=== PATIENT | female | born 1945 | race Caucasian/White ===

== ENCOUNTER 2016-09-10 05:44 | Day surgery (SDC) | payer OTHER ==
[~2016-09-10] VITALS: Ht 160 cm; Wt 86.7 kg
--- NOTE | ~2016-09-10 | EKG ---
[address] [address] ELECTROCARDIOGRAM REPORT Name: ADILENE HANNAH Room #: 150-6 [facility].#: [id number] Admission: 09/10/16 Attend Phys: Regino Blackwell MD Discharge: Date of : 45 Report #: [id number] THIS REPORT FOR: //name// [facility] Test Date: 2016-09-10 Test Time: 08:59:26 Pat Name: ADILENE HANNAH Department: Room: 150 Gender: F Supervisor [employer]: marco : 1945 Requested By: Regino Blackwell Order Number: [id number] MD: Adin Zavala Measurements Intervals [place] Rate: 54 P: 33 PA: 153 QRS: -11 QRSD: 103 T: 42 QT: 500 QTc: 474 Interpretive Statements Sinus rhythm Inferior infarct, old No previous ECG available for comparison Electronically Signed On 09-10-2016 15:27:39 CDT by Adin Zavala [email or web address] <ELECTRONICALLY SIGNED> By: Adin Zavala MD 09/10/16 [id number] Adin Zavala MD /EPI
[~2016-09-10 05:44] MED LIST: ADVAIR 250-501 EACH IH; ALPHA LIPOIC A600 M1 PO; AMITRIPTYLINE H50 M2 OR; ASPIR 8181 MG PO; ASPIRIN EC325 M1 OR; B12INJ IM; BYSTOLIC 5 MG5 M1 OR; CALCIUM 1,0001 EACH OR; CALCIUM 500 +1 EAC5 PO; CRANBERRY300 MG PO; GABAPENTIN 100100 MG PO; GLUMETZA1000 PO; LEVEMIR SQ; LEVOTHROID50 MCG OR; LEVOTHYROXINE 0.1 MG PO; LIPITOR10 MG OR; LISINOPRIL-HCT1 EAC2 PO; LISINOPRIL20 MG PO; MAGNESIUM GLUC500 M1 OR; MAGNESIUM PO; POTASSIUM CHLO10 ME1 PO; TOPROL XL25 MG PO; ULTRAM 50MG TAB50 MG PO; VITAMIN D31000 UNI2 PO
[2016-09-10 09:00] VITALS: BP 149/72
[2016-09-10 09:24] LABS: HEMOGLOBIN 12.8 gm/dL (12.0-15.0); MCH 30.3 pg (26.0-34.0); MCHC 33.6 g/dL (28.0-37.0); MCV 90.2 fL (80.0-100.0); RBC 4.22 mil/uL (4.20-5.00); RDW 13.9 % (10.5-14.5); WBC 4.2 thou/uL (4.0-11.0)
[2016-09-10 09:30] LABS: POTASSIUM 3.6 mmol/L (3.5-5.1)
[2016-09-10 09:34] LABS: ALBUMIN 3.4 g/dL (3.4-5.0); TOTAL BILIRUBIN 0.5 mg/dL (<0.1-1.0); TOTAL PROTEIN 6.5 g/dL (6.4-8.2)
== END 2016-09-10 14:30 | disposition home or self-care (01) ==
LOC: OR 05:44 → TBA 05:44 → OR 09:32
PROVIDERS: Specialist
DX: C50.911 Malignant neoplasm of unspecified site of right female breast (principal)
CPT/HCPCS: 50010

== ENCOUNTER 2016-10-13 05:24 | Day surgery (SDC) | payer OTHER ==
[~2016-10-13] VITALS: Ht 160 cm; Wt 88.0 kg
--- NOTE | ~2016-10-13 | O ---
[facility] [place] [place] [address] OPERATIVE REPORT Name: ADILENE HANNAH Room #: 150-2 [facility]#: [id number] Admission: 10/13/16 Attend Phys: Regino Blackwell MD Discharge: Date of : 45 Report #: [id number] THIS REPORT FOR: //name// CC: Dr. Juan Blackwell DATE OF SERVICE: 10/13/2016 PREOPERATIVE DIAGNOSIS: Carcinoma, right breast. POSTOPERATIVE DIAGNOSIS: Carcinoma, right breast, final pathology pending. OPERATION: 1. Lymphatic mapping. 2. Right breast segmental resection with wire localization and specimen x-ray. 3. Oncoplastic closure with placement of BioSorb tissue marker. 4. Right axillary sentinel lymph node biopsy. SURGEON: Regino Blackwell MD CHUTE LOADER: Medical student MS Karina3. SECOND JOB COACH/JOB DEVELOPER: Medical student MS Danilo3. ANESTHESIA: General. HISTORY OF PRESENT ILLNESS: The patient was taken to nuclear medicine and the radiologist injected technetium sulfur colloid into the right breast as per protocol. Lymphatic study in the nuclear medicine department revealed a single hot spot in the right axilla, which was marked by the radiologist. The radiologist also performed wire localization for the biopsy site and clip in the central upper right breast. The patient was brought to the operating room for a general anesthetic. Lymphatic mapping was performed using the gamma probe and I confirmed the presence of a hot spot in the right axilla, which had 10-second count of 3609. Next, 5 mL of Lymphazurin blue dye were injected around the tumor site using sterile technique with alcohol prep. Next, the right breast and right axilla were widely prepped with ChloraPrep solution. Sterile drapes were applied. A curved incision was made just above the right areola and dissection was carried down through the skin and subcutaneous tissue and then up to the guidewire in the upper breast, which was delivered into the incision. A generous segmental resection was performed remove the breast tissue widely around the shaft and tip of the wire to include the tumor. The resection included the pectoralis fascia in order to get best possible margins. [facility] [address] [place] [address] OPERATIVE REPORT Name: ADILENE HANNAH Room #: 150-2 [facility]..#: [id number] Admission: 10/13/16 Attend Phys: Regino Blackwell MD Discharge: Date of : 45 Report #: [id number] specimen was marked with sutures for orientation purposes. Specimen x-ray confirmed removal of the tumor and the clip and the guidewire together with normal appearing breast tissue all around. The radiologist reviewed the films and agreed they were excellent. I agreed as well. The specimen was given directly to the pathologist. Palpation from within the breast revealed no other suspicious areas. Hemostasis was obtained using electrocautery. The breast tissue was mobilized from the underlying chest wall in order to allow for oncoplastic closure, advancing the tissue flaps to fill in the gap. It is estimated that greater than 35 square cm of tissue were mobilized. The BioSorb tissue marker spacer was used to determine that the 3 x 3 cm BioSorb tissue marker would be a good fit for this patient. The 3 x 3 BioSorb tissue marker was placed into the lumpectomy cavity where it was sutured in place using interrupted 3-0 Vicryl. The breast tissue was approximated using interrupted 3-0 Vicryl. The skin was approximated using running 4-0 subcuticular PDS. Next, a transverse right axillary incision was made and dissection was carried down into the axilla with care being taken to avoid injury to the neurovascular structures. We found a single sentinel node which was resected, controlling the blood and lymphatic supply using the Harmonic scalpel. The sentinel node had a 10-second count of 5637. It was submitted to pathology. Palpation within the axilla revealed no other suspicious lymph nodes. There were no other blue or radioactive nodes to be found. The post resection bed count was 26, which was well below 10% of the highest node. Hemostasis was excellent. The incision was closed using running 3-0 Vicryl for the deep layer and running 4-0 PDS for the subcuticular layer. Sterile dressings were applied and the patient was taken to recovery in satisfactory condition. Estimated blood loss was less than 10 mL. By: [id number] Regino Blackwell MD /gabo
--- NOTE | ~2016-10-13 | S ---
[facility] [place] [address] SURGICAL PATH RPT PROCEDURE Name: KARIME HONEYCUTT Room #: DEP [facility].#: [id number] Admission: 10/13/16 Date of : 45 Discharge: 10/13/16 Report #: [id number] Path Case #: [id number] PATHOLOGY REPORT COLLECTION DATE: 10/13/2016 RECEIVED DATE: 10/13/2016 SUBMITTING PHYS: Dr. Regino Blackwell OTHER PHYS: Dr Kelley Paul SPECIMEN(S) RECEIVED: A.Right breast segmental resection B.Right axillary sentinel lymph node #1 * * * * * * * * * * * * FINAL DIAGNOSIS: A. 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 - DUCTAL CARCINOMA IN SITU CRIBRIFORM TYPE, INTERMEDIATE NUCLEAR GRADE PRESENT ADJACENT TO THE BIOPSY CAVITY. - Margins of resection free of malignancy; closest superior and inferior margins are 10 mm away from the invasive carcinoma (please see synoptic report). B. Lymph node (one), right axillary sentinel lymph node # 1, biopsy: - Reactive lymph node negative for malignancy. - No isolated tumor cells or micrometastases present on AE1/AE3 immunohistochemical stain (0/1). SYNOPTIC CANCER STAGING REPORT Radiologic Finding: Mass or architectural distortion Procedure: Excision with wire-guided localization Lymph Node Sampling: [place] lymph node(s) Specimen Laterality: Right Tumor Site of Invasive Carcinoma: Central Presence of Invasive Carcinoma: Invasive ductal carcinoma (no special type or not otherwise specified) Histologic Grade: Tubule formation: Score 3: <10% of tumor area forming glandular/tubular structures Nuclear pleomorphism: Score 2: Cells larger than normal with open vesicular nuclei, visible nucleoli, and moderate variability in both size and shape [facility] [address] [place] [address] SURGICAL PATH RPT PROCEDURE Name: KARIME HONEYCUTT Gill Room #: [facility]#: [id number] Admission: 10/13/16 Date of : 45 Discharge: 10/13/16 Report #: [id number] Path Case #: [id number] Mitotic Rate: Score 1 (<=3 mitoses per mm2) [place] Histologic Score-Grade II: 6-7 points Ductal Carcinoma In Situ: DCIS is present Negative for extensive intraductal component (EIC) DCIS Architectural Patterns: Cribriform DCIS Nuclear Grade: Grade II (intermediate) DCIS Necrosis: Not identified Lobular Carcinoma In Situ (LCIS): Not identified Tumor Size: Size of Largest Invasive Carcinoma: Greatest dimension of largest focus of invasion > 1 mm Greatest dimension: 7 mm Skin: Skin is not present No skeletal muscle present Invasive Carcinoma Margins: Margins uninvolved by invasive carcinoma. Distance from closest margin: 10 mm Closest Uninvolved Margin-Superior Closest Uninvolved Margin-Inferior DCIS Margins: Margins uninvolved by DCIS. Distance from closest margin: 5 mm Closest Uninvolved Margin-Superior Lymph-Vascular Invasion: Not identified Dermal Lymph-Vascular Invasion: No skin present Microcalcifications: Not identified Treatment Effect: No known presurgical therapy Lymph Nodes: Total number of nodes examined (sentinel and nonsentinel): 1 Micro / Macro Metastases not identified Number of Lymph Nodes with Isolated Tumor Cells (<= 0.2 mm and <= 200 cells) - none Number of [place] Lymph Nodes examined: 1 Method of Evaluation of [place] Lymph Nodes: H-E, multiple levels Method of Evaluation of [place] Lymph Nodes: Immunohistochemistry Estrogen Receptor: Performed on another specimen, number: [id number] Results from other specimen: 90 percent Progesterone Receptor: Performed on another specimen, number: [id number] [place] [address] SURGICAL PATH RPT PROCEDURE Name: HONEYCUTTKARIME Room #: [facility]#: [id number] Admission: 10/13/16 Date of : 45 Discharge: 10/13/16 Report #: [id number] Path Case #: [id number] Results from other specimen: 0 percent HER2 Immunoperoxidase Results: Performed on another specimen, number: [id number] Results from other specimen: 1+ In Situ Hybridization (FISH or CISH) for HER2 Results: Not performed Other Ancillary Studies: Performed on another specimen Specimen (accession number): [id number] Name of test: Ki-67 Results: 6.4 percent TNM Descriptor(s): Primary Tumor (Invasive Carcinoma) (pT): pT1b: Tumor >5 mm but <= 10 mm in greatest dimension Category (pN): pN0 (i-): No regional lymph node metastases histologically, negative IHC Comment: The invasive carcinoma in the current specimen only measures 1 mm; however it measured 7 mm in contigous length in a single core per the biopsy report [id number] (please see separate report for details). That measurement is included in this synoptic report and the tumor is therefore staged as pT1b. COMMENT: Ae1/Ae3 performed on block B1- negative for metastatic carcinoma. PATHOLOGIST: Jannet Olivarez M.D. REPORT ELECTRONICALLY SIGNED BY: Jannet Olivarez M.D. DATE/TIME: 10/15/2016 17:25 * * * * * * * * * * * * GROSS PATHOLOGY: A. The first specimen is received fresh from the OR labeled "Karime Honeycutt - right breast segmental resection, long suture - lateral, short suture - superficial, call results [place] ext [id number]". Received on an AccuGrid map with needle localization wire in place is a 42.7 gram oriented lumpectomy specimen. It measures 4.6 cm from medial to lateral by 3.0 cm from superior to inferior by 6.8 cm from anterior/superior to posterior/deep. The margins are inked as follows: superior - blue, anterior - green; posterior/deep - orange, inferior - black, medial - yellow and lateral - red. The specimen is bisected to reveal a centrally located previous biopsy site. The specimen is fixed in formalin. Reported time out of body: 0948 on 10/13/16. Time placed in formalin: 1021 on 10/13/16. (CLW:amador; d/t: 10/13/2016) [address] [address] SURGICAL PATH RPT PROCEDURE Name: KARIME HONEYCUTT Room #: DEP [facility]#: [id number] Admission: 10/13/16 Date of : 45 Discharge: 10/13/16 Report #: [id number] Path Case #: [id number] After adequate fixation, sectioning through the specimen reveals a previous biopsy site measuring 2.0 x 0.8 x 0.6 cm, with a metallic clip present. This site is 3.5 cm from the lateral margin, 1.5 cm from the medial margin, 0.4 cm from the superior margin, 0.8 cm from the inferior margin, 1.3 cm from the anterior margin, and 3.3 cm from the posterior margin. The remainder the specimen is comprised of yellow-zepeda fibrofatty breast tissue, with no distinct nodules or lesions. The specimen is submitted representatively as follows: A1 most lateral margin A2 most medial margin A3-A6 entire previous biopsy site submitted from lateral to medial aspects. The total formalin fixation time is 35 hours and 30 minutes. B. The specimen is received in formalin labeled "Karime Honeycutt, right axillary sentinel lymph node #1, count 5637". Received is a segment of yellow-zepeda lobulated tissue measuring 4.1 x 3.2 x 1.5 cm in greatest dimensions. Sectioning reveals two readily identifiable lymph nodes measuring 1.0 and 1.1 cm in maximum dimensions. The lymph nodes are submitted entirely in cassette B1, differentially inked. Immunohistochemical stains are ordered. (CAA; 10/14/2016) INTRAOPERATIVE CONSULTATION (Zamzam Johnston M.D.) A. "Right breast segmental resection": - Oriented breast lumpectomy specimen with previous biopsy site identified and subsequently fixed in formalin. (CLW:amador; d/t: 10/13/2016) Professional services performed by [facility] at [facility] [address] [place] [address] CLINICAL HISTORY: Carcinoma right breast INITIAL CPT CODE(S): A; 05579, 87618 B; 31817, 04639 Professional services performed by [facility] at [facility] [address] [place] [address] Technical services performed by [facility] at [address] [place] [address], [place] [address]. Juan Carlton [facility] [address] [place] [address] SURGICAL PATH RPT PROCEDURE Name: KARIME HONEYCUTT Room #: [facility] Janeen#: [id number] Admission: 10/13/16 Date of : 45 Discharge: 10/13/16 Report #: [id number] Path Case #: [id number] [facility] [address] [address] PHONE: [phone] DIRECTOR: Quentin Hill M.D. * * * END OF REPORT * * *
[~2016-10-13 05:24] MED LIST changes: +CRANBERRY PO; +ECOTRIN325 MG PO; +IRON PO
[2016-10-13 06:44] LABS: HEMATOCRIT 39.4 % (37.0-47.0); HEMOGLOBIN 13.2 gm/dL (12.0-15.0); MCH 30.5 pg (26.0-34.0); MCHC 33.6 g/dL (28.0-37.0); MCV 90.7 fL (80.0-100.0); RBC 4.34 mil/uL (4.20-5.00)
[2016-10-13 06:51] LABS: CALCIUM 9.3 mg/dL (8.5-10.1); POTASSIUM 3.6 mmol/L (3.5-5.1)
[2016-10-13 06:55] LABS: ALBUMIN 3.7 g/dL (3.4-5.0); TOTAL BILIRUBIN 0.4 mg/dL (<0.1-1.0); TOTAL PROTEIN 7.4 g/dL (6.4-8.2)
[2016-10-13 07:30] VITALS: BP 168/72
== END 2016-10-13 12:00 | disposition home or self-care (01) ==
LOC: OR 05:24 → TBA 05:24 → OR 12:00
PROVIDERS: Specialist
DX: C50.911 Malignant neoplasm of unspecified site of right female breast (principal); I10 Essential (primary) hypertension; Z85.038 Personal history of other malignant neoplasm of large intestine; E03.8 Other specified hypothyroidism; E11.9 Type 2 diabetes mellitus without complications; Z90.49 Acquired absence of other specified parts of digestive tract
CPT/HCPCS: 50010; 50101; 50386; 50403; 52190; 53332; 56524; 56526; 56805; 62110; 62900; 70005

== ENCOUNTER → 2017-01-27 | Outpatient (CLI) | payer OTHER ==
[~2017-01-27] VITALS: Ht 157.5 cm; Wt 86.2 kg
[2017-01-27 08:34] VITALS: BP 167/62
[2017-01-27 08:41] LABS: HEMATOCRIT 37.5 % (37.0-47.0); HEMOGLOBIN 12.6 gm/dL (12.0-15.0); MCH 30.9 pg (26.0-34.0); MCHC 33.7 g/dL (28.0-37.0); MCV 91.7 fL (80.0-100.0); RBC 4.09 mil/uL (4.20-5.00); RDW 14.4 % (10.5-14.5); WBC 4.6 thou/uL (4.0-11.0)
[2017-01-27 08:52] LABS: CALCIUM 9.2 mg/dL (8.5-10.1); CREATININE 0.9 mg/dL (0.6-1.0); POTASSIUM 3.9 mmol/L (3.5-5.1)
[2017-01-27 08:54] LABS: APTT 24.5 Seconds (24.5-32.8)
== END | disposition home or self-care (01) ==
LOC: SPEC 08:07 → EDSTATUS 10:29 → SPEC 10:30
PROVIDERS: Radiology Vascular & Interventional Radiology
DX: Z45.2 Encounter for adjustment and management of vascular access device (principal); I10 Essential (primary) hypertension; E03.9 Hypothyroidism, unspecified; E11.9 Type 2 diabetes mellitus without complications; Z90.49 Acquired absence of other specified parts of digestive tract; Z98.890 Other specified postprocedural states; Z85.3 Personal history of malignant neoplasm of breast; D64.9 Anemia, unspecified; E78.5 Hyperlipidemia, unspecified

== ENCOUNTER 2017-12-09 20:29 | Emergency (ER) | payer OTHER ==
[~2017-12-09] VITALS: Ht 160 cm; Wt 93.9 kg
[2017-12-09] MEDS ORDERED: ULTRAM 50MG TAB50 MG PO (22:13)
== END 2017-12-09 22:29 | disposition home or self-care (01) ==
LOC: ER 20:29
DX: S62.521A Displaced fracture of distal phalanx of right thumb, initial encounter for closed fracture (principal); S02.2XXA Fracture of nasal bones, initial encounter for closed fracture; I10 Essential (primary) hypertension; E03.9 Hypothyroidism, unspecified; E11.9 Type 2 diabetes mellitus without complications; Z90.49 Acquired absence of other specified parts of digestive tract; Z90.89 Acquired absence of other organs; Z90.722 Acquired absence of ovaries, bilateral; Z85.3 Personal history of malignant neoplasm of breast; Z85.038 Personal history of other malignant neoplasm of large intestine; Z88.1 Allergy status to other antibiotic agents; Z79.4 Long term (current) use of insulin; W01.198A Fall on same level from slipping, tripping and stumbling with subsequent striking against other object, initial encounter; Y92.89 Other specified places as the place of occurrence of the external cause; Y93.89 Activity, other specified; Y99.8 Other external cause status